=== PATIENT | female | born 1985 | race Two or more races ===

== ENCOUNTER 2020-01-08 08:11 | Day surgery (SDC) | payer OTHER ==
[~2020-01-08 08:11] MED LIST: CEFAZOLIN 2 GM/D5W RTU 2 GM/50 ML RTUPB IV PRN; LACTATED RINGERS 1000 ML IV PRN; LIDOCAINE 0.5% INJ-PF (5 MG/ML) 50 ML SDV SUBCUT PRN; SCOPOLAMINE HYDROBROMIDE 1.5 MG PATCH.TD72 TD PRN
[2020-01-08] MEDS ORDERED: ONDANSETRON HCL INJ/PF 4 MG/2 ML SDV ONE (08:13)
[2020-01-08] MEDS ORDERED: PROPOFOL INJ 200 MG/20 ML VIAL IV ONE (08:14)
[2020-01-08] MEDS ORDERED: DEXMEDETOMIDINE INJ 80 MCG/20 ML VIAL IV ONE (08:14)
[2020-01-08] MEDS ORDERED: MIDAZOLAM 2 MG/2 ML INJ ONE (08:14)
[2020-01-08] MEDS ORDERED: DEXAMETHASONE SOD PHOSPHATE INJ 4 MG/1 ML VIAL ONE (08:14)
[2020-01-08] MEDS ORDERED: FENTANYL CITRATE INJ/PF 100 MCG/2 ML AMPUL ONE (08:14)
[2020-01-08] MEDS ORDERED: TOBRAMYCIN SULFATE/DEXAMETH OPH OINTMENT 3.5 GM ONE (08:31)
[2020-01-08] MEDS ORDERED: MINERAL OIL (STERILE) 10 ML VIAL ONE (08:31)
[2020-01-08] MEDS ORDERED: BUPIVACAINE HCL 0.5%/EPI 1:200000 INJ 1.8 ML CARTRIDGE ONE (08:31)
[2020-01-08] MEDS ORDERED: BACITRACIN ZINC OINTMENT 15 GM ONE (08:31)
[2020-01-08] MEDS ORDERED: OXYMETAZOLINE HCL 0.05% NASAL SPRAY 15 ML BOTTLE ONE (08:31)
[2020-01-08] MEDS ORDERED: BALANCED SALT IRRIG SOLN COMB2 15 ML BOTTLE ONE (08:32)
[2020-01-08] MEDS ORDERED: SCOPOLAMINE HYDROBROMIDE 1.5 MG PATCH.TD72 TD PRN (10:13)
[2020-01-08] MEDS: FENTANYL CITRATE INJ/PF 100 MCG/2 ML AMPUL ONE ×2 (11:57→12:03)
[2020-01-08] MEDS ORDERED: OXYCODONE-ACETAMINOPHEN 5-325 MG TABLET ONE (12:39)
[2020-01-09] MEDS ORDERED: LACTATED RINGERS 1000 ML IV PRN (05:00)
[2020-01-09] MEDS ORDERED: LIDOCAINE 0.5% INJ-PF (5 MG/ML) 50 ML SDV SUBCUT PRN (05:00)
--- NOTE | 2020-01-29 13:50 | Operative Report ---
Operative Report-[facility] Operative Report: DATE OF OPERATION: January 08, 2020 PREOPERATIVE DIAGNOSES: 1. Nasal Deformities, Acquired 2. Chronic Nasal Dyspnea 3. Nasal septal deviation, Acquired 4. Bilateral inferior turbinate hypertrophy 5. History of prior nasal surgery 6. Bilateral nasal valve collapse/deficiency POSTOPERATIVE DIAGNOSES: 1. Nasal Deformities, Acquired 2. Chronic Nasal Dyspnea 3. Nasal septal deviation, Acquired 4. Bilateral inferior turbinate hypertrophy 5. History of prior nasal surgery 6. Bilateral nasal valve collapse/deficiency PROCEDURES: 1. Septorhinoplasty with bilateral nasal valve surgery 2. Bilateral intramural inferior turbinate reductions using submucus resection techniques SURGEON: Dr. Corbin Posey Anesthesia Staff: DAVID Coleman ANESTHESIA: General endotracheal tube anesthesia/GETA DRAINS: None SPONGE COUNT: Verified NEEDLE COUNT: Verified SPECIMEN/MATERIALS FORWARD TO THE LAB: None ESTIMATED BLOOD LOSS: TOTAL IV FLUIDS: COMPLICATIONS: None FINDINGS: 1. Nasal septal deviations involving bone and cartilage, and a prominent maxillary crest spur/septal spur was noted. 2. Bialateral Inferior turbinate hypertrophy. 3. Post rhinoplasty nasal dorsal changes with dorsal contour irregularities. 4. Bilateral nasal valve collapse/deficiencies. INDICATIONS: This is a 34-year-old female patient who was seen and evaluated in the [place] otolaryngology office. The patient was referred for and they complained of a history of chronic nasal dyspnea over the years. The patient reported prior history of rhinoplasty surgery while in [place] for a nasal dorsal hump. The patient has desired to undergo functional nasal surgery with a septorhinoplasty with bilateral nasal valve surgery, and bilateral inferior turbinate reductions to improve functional nasal airflow and overall quality of life. The procedures, and all of the risks and complications were all discussed in detail with the patient. They voiced an understanding, agreed to proceed, and consent was obtained. DESCRIPTION OF OPERATIVE PROCEDURE: The patient was taken to the main operating room and placed on the operating room table in the supine position. Appropriate monitors were placed. Using mask and IV access general anesthesia was induced. The patient was then transorally intubated without difficulty. The table was next positioned for nasal surgery. The patient underwent a nasal examination and local anesthetic with epinephrine was administered to establish a nasal block. The patient next had two Afrin soaked neuropatties placed into each nasal passage. The patient was then prepped and draped in the usual fashion for nasal surgery. Findings are as noted above. The neuropatties were removed and the patient underwent a hemitransfixion incision. There was elevation of the mucoperichondrial and mucoperiosteal flaps without difficulty. The bony cartilaginous junction was identified and divided and the most deviated portions of the bony and cartilaginous septum were removed without difficulty. The prominent maxillary crest spur/septal spur was removed with a V-chisel without difficulty. There was a greater then 1.5 X 1.5 cm cartilaginous L-Strut preserved. Attention was now turned to performing bilateral inferior turbinate reductions. The turbinate bipolar wand was used to make 2 - 3 intramural passes in each inferior turbinate. At this point the turbinate microdebrider system at a setting of 1500 RPM was used to perform bilateral inferior turbinate submucous resections. This was followed by use of the [place] elevator to outfracture each inferior turbinates. At this point the rhinoplasty portion of the case was addressed with bilateral nasal valve surgery using the there are there nasal valve device. Were 4 treatment locations bilateral throughout the nasal valve areas. There was rolled Surgicel placed deep to the nasal valve on each side. At this point the nose was thoroughly suctioned. Once cartilage which had been excised during the case was placed back between the mucosal flaps. At this point the mucosal flaps were reapproximated and the hemitransfixion incision was closed using Chromic suture. This was followed by placement of intranasal supporting Merocel material in each nasal passage that was secured at the caudal aspect with 4-0 Prolene suture. The nose was then cleaned and dried. Next, the patient was returned to the anesthesia staff and was allowed to emerge from general anesthesia. The patient was extubated in the main operating room and was then transported to the postanesthesia recovery unit in stable condition. There were no complications.
== END 2020-01-08 14:07 | disposition home or self-care (01) ==
LOC: SC 08:11
PROVIDERS: ATTEND Otolaryngology
DX: M95.0 Acquired deformity of nose (principal); J34.3 Hypertrophy of nasal turbinates; J34.89 Other specified disorders of nose and nasal sinuses; R06.09 Other forms of dyspnea
CPT/HCPCS: 00160; 30420; 30802; J2250; J3490 ×5; J1100; J3010; J2405; J2704; J0690; 160